=== PATIENT | male | born 1940 | race Caucasian/White ===

== ENCOUNTER → 2017-04-18 | Outpatient (CLI) | payer MEDICARE, OTHER ==
[~2017-04-18] MED LIST: ACTOS 30 MG TAB30 M1 PO; ACTOS15 MG PO; ASPIR 8181 MG PO; BRILINTA90 MG PO; CIPRO500 MG PO; CLONIDINE0.1 PO; COZAAR 25 MG TA25 M1 PO; COZAAR 50 MG TA50 M2 PO; CYCLOBENZAPRINE5 MG PO; DIABETA 5MG TABL5 MG PO; DOCUSATE SODIU100 MG PO; FARXIGA10 MG PO; FLOMAX0.4 MG PO; HYDRALAZINE20 MG/M1 IV PUSH; HYDROCHLOROTHIA25 M2 PO; IBUPROFEN 400400 M2 PO; KEFLEX500 MG PO; KEPPRA 500 MG500 M1 PO; LAMICTAL100 MG PO; LAMOTRIGINE ODT25 MG PO; LIDODERM 5%1 PATC1 TRANSDERM; LIPITOR 20 MG T20 M1 PO; LOPRESSOR50 PO; METFORMIN HCL500 MG PO; MIRALAX17 GM PO; MIRALAX255 GM PO; NITROGLYCERIN0.4 MG SUBLING; NORCO 5-325 TA1 EACH PO; NORVASC10 MG PO; NYAMYC15 GM TOP; PHENAZOPYRIDIN200 M2 PO; PIOGLITAZONE15 MG; PIOGLITAZONE15 MG PO; PROVIGIL 200 M200 M1 PO; SERTRALINE HCL50 MG PO; STOOL SOFTENER1 EAC2 PO; TOPROL XL25 MG PO; TYLENOL325 MG PO; ULTRAM 50MG TAB50 MG PO; ZOCOR20 MG PO; ZOFRAN ODT4 MG DISSOLVE
[2017-04-18 15:29] LABS: ALBUMIN 3.3 g/dL (3.4-5.0); CALCIUM 9.3 mg/dL (8.5-10.1); CREATININE 1.2 mg/dL (0.6-1.3); DIRECT BILIRUBIN 0.1 mg/dL (<0.1-0.3); TOTAL BILIRUBIN 0.2 mg/dL (<0.1-1.0); TOTAL PROTEIN 7.7 g/dL (6.4-8.2)
[2017-04-18 17:44] LABS: URINE BILIRUBIN NEGATIVE (Negative); URINE BLOOD NEGATIVE (Negative); URINE CLARITY CLEAR; URINE COLOR YELLOW; URINE GLUCOSE-RANDOM NEGATIVE (Negative); URINE KETONES NEGATIVE (Negative); URINE LEUKOCYTES-REFLEX NEGATIVE (Negative); URINE NITRITE-REFLEX NEGATIVE (Negative); URINE PROTEIN NEGATIVE (Negative); URINE UROBILINOGEN 0.2 E.U./dl (0.2-1.0)
== END ==
LOC: M.LAB 14:30 → M.CT 15:30
PROVIDERS: Internal Medicine
DX: K80.20 Calculus of gallbladder without cholecystitis without obstruction (principal)

== ENCOUNTER → 2017-04-28 | Outpatient (CLI) | payer MEDICARE, OTHER ==
[2017-04-28 09:40] LABS: HEMATOCRIT 39.8 % (42.0-52.0); HEMOGLOBIN 13.4 gm/dL (14.0-18.0); MCH 29.5 pg (26.0-34.0); MCHC 33.7 g/dL (28.0-37.0); MCV 87.4 fL (80.0-100.0); MPV 8.2 fl. (7.2-11.1); NUCLEATED RBCS 0 /100WBC; PLATELET COUNT* 262 thou/uL (150-400); RBC 4.56 mil/uL (4.50-6.00); RDW-CV 15.6 % (10.5-14.5); WBC 5.5 thou/uL (4.0-11.0)
[2017-04-28 10:07] LABS: APTT 30.2 Seconds (25.0-31.3); INR 1.1; PROTIME 10.5 Seconds (9.20-11.50)
[2017-04-28 10:11] LABS: ABSOLUTE EOSINOPHILS 0.3 thou/uL (0.0-0.7); ABSOLUTE LYMPHOCYTES 0.5 thou/uL (0.8-5.3); ABSOLUTE MONOCYTES 0.3 thou/uL (0.0-1.2); ABSOLUTE NEUTROPHILS 4.4 thou/uL (1.6-8.1); ANISOCYTOSIS 1+; PLATELET ESTIMATE ADEQUATE; POIKILOCYTOSIS 1+
--- NOTE | 2017-05-02 23:03 | S ---
[address] [address] SURGICAL PATH RPT PROCEDURE Name: YOVANY MARTINEZ [id number] Admission: 04/28/17 Date of : 38 Discharge: Report #: [id number] Path Case #: [id number] PATHOLOGY REPORT COLLECTION DATE: 04/28/2017 RECEIVED DATE: 04/30/2017 SUBMITTING PHYS: Dr. Franklyn Wan OTHER PHYS: Dr. Angel Banks SPECIMEN(S) RECEIVED: A.Abdominal mass * * * * * * * * * * * * FINAL DIAGNOSIS: "Abdominal mass", image guided needle biopsy: - Lymph node with atypical lymphoid infiltrate and geographic necrosis. (See comment). (CLW:stiven; 05/02/2017) COMMENT: Sections show needle core biopsy fragments of lymph node. Large areas of geographic necrosis and degenerating lymphocytes are noted. Focal areas of viable lymph node show lymphocytes with a mixed population of large and medium-sized lymphoid cells. No markedly atypical lymphoid cells, including Catrachito-Ismael cells, are identified. Due to the inconclusive, paucicellular, and borderline viable flow cytometry specimen, properly controlled immunohistochemical stains are performed. Block A1 CD30 - Patchy weak staining, no Catrachito-Ismael cells identified CD15 - Stains the necrosis PAX5 - Scattered B-cells within the viable tissue CD3 - Scattered T-cells within the viable and non-viable tissue MUM1 - Scattered positive cells ALK1 - Essentially nonreactive Flow cytometric immunophenotypic analysis was attempted at [facility]. The diagnosis is "low cellularity specimen with no definitive flow immunophenotypic evidence of a lymphoproliferative disorder". There are 35.8% lymphocytes. Of the lymphocytes, there are greater than 90% T-cells with a CD4/CD8 ratio of 1.4. No aberrant T-cell antigen expression. B-cells are too few for reliable clonality assessment. The vast majority of lymphocytes are heterogeneous T-cells. There is no definitive flow immunophenotypic evidence of a B- or T-cell lymphoproliferative disorder. Please see separate flow cytometry report from [facility] ([id number]). Overall the diagnosis is lymph node with [place] [address] SURGICAL PATH RPT PROCEDURE Name: YOVANY MARTINEZ Room: [facility]#: [id number] Admission: 04/28/17 Date of : 38 Discharge: Report #: [id number] Path Case #: [id number] and geographic necrosis. It is concerning for a lymphoproliferative process. 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 Obtaining additional tissue for complete morphologic evaluation and flow cytometric immunophenotypic analysis may provide additional information, if clinically indicated. Clinical and radiographic correlation is required. The H and E stained slides are co-reviewed with Dr. Joe Jones. The case was discussed with Dr. Banks by Dr. Joe Jones on 05/02/2017 in the morning. (CLW:stiven; 05/02/2017) PATHOLOGIST: Nirali Covarrubias M.D. REPORT ELECTRONICALLY SIGNED BY: Nirali Covarrubias M.D. DATE/TIME: 05/02/2017 23:02 * * * * * * * * * * * * GROSS PATHOLOGY: The specimen is received in formalin, labeled "Yovany Martinez, abdominal mass mesenteric BX," and consists of multiple needle core biopsies measuring 2.0 x 0.5 x 0.1 cm in aggregate. They are entirely submitted in cassette A1. (SDY; 04/30/2017) A separate specimen received in RPMI is submitted to [facility] for flow cytometry studies. (GUANAKO:mml; 05/01/2017) CLINICAL HISTORY: Core biopsies of mesenteric mass, suspect lymphoma 14.5 x 9.5 x 14.2 cm mass INITIAL CPT CODE(S): A; 09875, 70928, 90529, 26613, 90696, 76398, 80474 Professional services performed by [facility] at [facility], [address] [place], [place] [address], [place] [address]. Technical services performed by [facility] at [address] [place] [address], [address], [place] [address]. [facility] [address] [place] [address] PHONE: [phone] DIRECTOR: Simone Méndez M.D. * * * END OF REPORT * * *
== END | disposition home or self-care (01) ==
LOC: M.LAB 09:00 → M.CT 10:00
PROVIDERS: Internal Medicine
DX: C81.93 Hodgkin lymphoma, unspecified, intra-abdominal lymph nodes (principal); R10.9 Unspecified abdominal pain

== ENCOUNTER → 2017-05-14 | Day surgery (SDC) | payer MEDICARE, OTHER ==
--- NOTE | 2017-05-14 15:51 | EKG ---
[place] [address] ELECTROCARDIOGRAM REPORT Name: HECTOR MARTINEZ Heron Room: [facility]#: [id number] Admission: 05/14/17 Attend Phys: Landy Arguello DO Discharge: Date of : 38 Report #: [id number] THIS REPORT FOR: //name// [facility] Test Date: 2017-05-14 Test Time: 12:13:35 Pat Name: HECTOR MARTINEZ Department: Room: Gender: M Wet Silk Hanger: LEXII : 1940 Requested By: Landy Arguello Order Number: [id number] Bertha MD: Angel Coker Measurements Intervals Cornwall Rate: 69 P: 3 WY: 247 QRS: -18 QRSD: 110 T: 3 QT: 409 QTc: 438 Interpretive Statements Sinus rhythm Prolonged WY interval Inferior infarct, old Probable anteroseptal infarct, old Compared to ECG 10/17/2016 08:55:44 No significant changes Electronically Signed On 05-14-2017 15:50:50 CDT by Angel Coker [email or web address] <ELECTRONICALLY SIGNED> By: Angel Coker MD, [facility] 05/14/17 1550 1213 1213 Angel Coker MD, [facility] /EPI
--- NOTE | 2017-05-14 19:07 | OP ---
[address] [address] OPERATIVE REPORT Name: HECTOR MARTINEZ Room: [facility]#: [id number] Admission: 05/14/17 Attend Phys: Landy Arguello DO Discharge: Date of : 38 Report #: [id number] THIS REPORT FOR: //name// CC: Landy Fierromen DICTATED BY: Airam Mccarthy DO DATE OF SERVICE: 05/14/2017 Dr. Airam Mccarthy dictating for Dr. Landy Arguello. PREOPERATIVE DIAGNOSIS: Lymphadenopathy. POSTOPERATIVE DIAGNOSIS: Lymphadenopathy. SURGEON: Landy Arguello DO; and Airam Mccarthy DO, PGY-5. PASTEURIZER HELPER: SOFIA Ying. PROCEDURE: Left groin excisional lymph node biopsy. ANESTHESIA: Local MAC. ESTIMATED BLOOD LOSS: 10 mL. SPECIMENS: Left groin lymph node. COMPLICATIONS: None. HISTORY OF PRESENT ILLNESS: The patient is a pleasant 76-year-old male who presented to our office for evaluation of large mesenteric mass. He had had a percutaneous biopsy of this with concern for lymphoma that was not definitively diagnostic and we were asked to proceed with excisional lymph node biopsy to obtain additional tissue. Risks and benefits were discussed with the patient including risk of bleeding, infection, possible lymphocele and possible need for reexcision. He understood and agreed to proceed. OPERATIVE DETAILS: After obtaining proper informed consent, the patient was brought to the operating room and laid supine on the operating table. He was given preoperative antibiotics. SCDs were placed and left arm was tucked and padded in usual fashion. He was sedated under monitored anesthesia care and local infiltration of 0.5% Marcaine was injected in the subcutaneous tissue overlying the palpable lymph node in the left groin. A curvilinear incision was made and dissection of subcutaneous tissue was carried [place] [address] OPERATIVE REPORT Name: HECTOR MARTINEZ Room: [facility]#: [id number] Admission: 05/14/17 Attend Phys: Landy Arguello DO Discharge: Date of : 39 Report #: [id number] cautery. Careful blunt dissection was carried out until we are able to see evidence of methylene blue in the lymphatic channels. A small lymph node was then grasped with an Allis and lymphatic channel was clamped proximally and distally and it was excised sharply and was sent with pathology for fresh evaluation. Silk ties were placed on the proximal and distal lymphatics and groin was inspected and hemostasis assured with cautery. Incision was closed in layered fashion with deep 3-0 Vicryl suture, subcutaneous with 3-0 Vicryl and skin was closed with running 4-0 Monocryl. A total of 50 mL of 0.5% Marcaine was injected throughout the case. Mastisol, Steri-Strips, sterile gauze and sterile Tegaderm dressing were applied. All counts were correct at the end of the case. Drapes were removed and the patient was awoken and brought to PACU in good condition for further recovery. Dr. Landy Arguello was present and scrubbed for the entirety of the procedure. <ELECTRONICALLY SIGNED> By: Landy Arguello DO 05/14/17 1907 1525 1556Caliyn Arguello, /nt
--- NOTE | 2017-05-20 15:45 | S ---
[address] [address] SURGICAL PATH RPT PROCEDURE Name: HECTOR MARTINEZ Room: [facility].#: [id number] Admission: 05/14/17 Date of : 38 Discharge: Report #: [id number] Path Case #: [id number] PATHOLOGY REPORT COLLECTION DATE: 05/14/2017 RECEIVED DATE: 05/14/2017 SUBMITTING PHYS: Dr. Landy Arguello OTHER PHYS: Dr. Angel Rivera SPECIMEN(S) RECEIVED: A.L groin lymph node * * * * * * * * * * * * FINAL DIAGNOSIS: "Left groin lymph node," excisional biopsy: - Lymph node with dense hilar fibrosis and compressed lymphoid tissue showing reactive changes; no diagnostic evidence of lymphoma. (see comment) COMMENT: Sections show fragments of lymph node that is predominantly replaced with a dense hilar fibrosis. Lymph node cortical lymphoid tissue is compressed and shows reactive changes. There are areas of sinus sclerosis and dystrophic calcification typical of groin / pelvic lymph nodes. The lymphocytes are predominantly small, round, and mature appearing with condensed chromatin and scant cytoplasm with admixed loose collections of larger germinal center type lymphoid cells. No markedly atypical lymphoid cells, including Catrachito-Ismael cells, are identified. No geographic necrosis is seen. No granulomas or metastatic carcinoma is identified. Due to the low viability and low cellularity of the flow cytometry specimen, properly controlled immunohistochemical stains are performed. (Block A1) CD20: stains cortical B cells PAX-5: stains cortical B cells CD3: highlights admixed T cells CD10: occasional weakly reactive collections of cells BCL-6: loose collections of reactive cells, likely germinal center type cells BCL-2: reactive in lymphoid cells CD23: minimal residual dendritic cell mesh works Cyclin D-1: lacks diffuse nuclear staining MUM-1: stains rare scattered smaller cells, likely plasma cells CD30: no significant staining CD15: highlights scattered smaller cells, likely granulocytes ALK-1: [place] [address] SURGICAL PATH RPT PROCEDURE Name: HECTOR MARTINEZ Room: [facility]#: [id number] Admission: 05/14/17 Date of : 38 Discharge: Report #: [id number] Path Case #: [id number] Ki-67: stains occasional scattered small cells Flow cytometric immunophenotypic analysis was performed at [facility]. The diagnosis is "no significant lymphoid immunophenotypic abnormalities detected in a limited study." There are 23% lymphocytes. Of the lymphocytes, there are 29% B cells that are polytypic / polyclonal. T cells have no significant abnormalities and the CD4/CD8 ratio is 3.4. There are 77% CD45 negative events / debris. A limited panel of markers was performed due to very low cell yield. There is no significant immunophenotypic abnormalities detected in this limited analysis. Please see separate flow cytometry report from [facility] ([id number]). Cytomorphological examination of the touch imprints shows a polymorphous population of lymphoid cells. No markedly atypical lymphoid cells are identified. Overall, the diagnosis is lymph node with diffusely fibrotic hilar region and compressed lymphoid tissue showing reactive changes. There is no diagnostic evidence of lymphoma or a lymphoproliferative process. The tissue is morphologically different from the previously biopsied abdominal mass ([id number]). Clinical and radiographic correlation is required. (CLW:; 05/20/2017) PATHOLOGIST: Nirali Covarrubias M.D. REPORT ELECTRONICALLY SIGNED BY: Nirali Covarrubias M.D. DATE/TIME: 05/20/2017 15:44 * * * * * * * * * * * * MICROSCOPIC DESCRIPTION: Special studies report received from [facility], [address] [place] [address], [address], [place], [address], on case [id number], labeled with their number [id number], dated 05/17/2017. Flow Cytometry: Hematologic Neoplasia Assessment Test Cancellation Report Clinical History Left groin lymph node Indication For Study Evaluation for lymphadenopathy Specimen Lymph Node, Left Groin Viability 44% (7AAD exclusion) Interpretation Lymph Node, Left Groin: - No significant lymphoid immunophenotypic abnormalities detected in a limited study (see comment). Comments A limited panel of markers was performed due to very low cell yield. There are no significant immunophenotypic abnormalities detected in this limited analysis. [place] [address] SURGICAL PATH RPT PROCEDURE Name: HECTOR MARTINEZ Room: [facility]#: [id number] Admission: 05/14/17 Date of : 38 Discharge: Report #: [id number] Path Case #: [id number] non- hematolymphoid neoplasms, Hodgkin lymphoma, some large cell lymphomas and some T-cell lymphomas cannot be totally excluded based solely on flow cytometry analysis. Correlation with available clinical, laboratory, and morphologic data is recommended. Given the reduced specimen viability, these results need to be interpreted with caution. Populations Analyzed Lymphocytes: 23% B-cells: 29%, polytypic/polyclonal sIg light chain pattern T-cells: no significant abnormalities of the markers tested CD4:CD8: 3.4 CD45 Negative 77% No significant reactivity with the markers tested (may represent Events/Debris: non-hematolymphoid cells, degenerated cells, debris, unlysed red blood cells, etc.) Morphologic Evaluation A slide was reviewed for supplier quality purposes only. Specimen Description Due to low cell count, the lab is unable to provide an accurate cell yield. A limited panel of antibodies was performed and < 10.000 events were acquired. Flow cytometry data derived from an acquisition with less than 10,000 events needs to be interpreted within the context of all clinical, laboratory, and morphologic information. Reagent(s) Used CD3, CD4, CD5, CD8, CD10, CD19, CD20, CD38, CD45, CD57, kappa, lambda at [facility] [employer]. Louisa Hernandez MD Pathologist Intended Use Flow cytometry is optimally used to immunophenotypically characterize abnormal populations when they are detected. Negative flow cytometry results do not exclude lymphoma or neoplasia. Possible false negative flow cytometry results may occur in, but are not limited to, the following: neoplastic cells in Hodgkin lymphoma are not typically adequately represented by routine clinical flow cytometry; neoplastic cells may be lost or inadequately represented due to degeneration, sample processing, sampling artifact, or patchy involvement; plasma cells are typically underrepresented by flow cytometry; immature cells/blasts may be underrepresented due to hemodilution; myeloproliferative disorders and low grade myelodysplasia may not have immunophenotypic abnormalities or increased blasts. Correlation with all available clinical, laboratory, and morphologic data is always necessary to assess for the possibility of false negative flow cytometry results and to establish a diagnosis. Each marker in this analysis was used to assess for potential antigenic abnormalities or to evaluate detected abnormalities. Disclaimer(s) [place] [address] SURGICAL PATH RPT PROCEDURE Name: HECTOR MARTINEZ Room: [facility].#: [id number] Admission: 05/14/17 Date of : 38 Discharge: Report #: [id number] Path Case #: [id number] This test was performed at [facility]. at [address] [place], [place], [address] - Undertaker Assistant: Franklyn Aguilar MD. [facility] is a business unit of [employer], [employer] a wholly-owned subsidiary of [employer]. Any image or images that accompany this report are uniforms sales representative images only and should not be used to render a diagnosis. This test was developed and its performance characteristics determined by [facility]. It has not been cleared or approved by the Food and Drug Administration (FDA). The FDA has determined that such clearance or approval is not necessary. For inquiries, the physician may contact Lab: [phone] A complete copy of the report is on file. Professional services performed by [facility]. at [address], [place] [address]. Technical services performed by [facility]. at [address], [place] [address]. GROSS PATHOLOGY: Received fresh from the OR is a nodule measuring approximately 1 x 0.8 x 0.7 cm accompanied by a label marked with the patient's name and "left groin lymph node". Using sterile technique, a portion of the sample is submitted for routine, fungal and mycobacterial cultures and a small portion is submitted in RPMI for flow cytometry studies and a Touch-Prep is prepared and the remainder of the entire sample is serially sectioned and submitted in cassette A1. A portion of the specimen was received in RPMI solution and is forwarded on for flow cytometry studies. (GUANAKO:stiven; 05/14/2017) INTRAOPERATIVE CONSULTATION (Miya Jones M.D.) Intraoperative Touch-Prep (Left groin lymph node): - Viable lymphoid tissue identified. (GUANAKO:stiven; 05/14/2017) Testing performed by [facility] at [facility], [address] [place] [address]. CLINICAL HISTORY: None Provided INITIAL CPT CODE(S): A; 89600(23), 37672, 41669, 93003, 78156, 98700, 50664, 17539, 03529, 98156, 63449, 13407, 57647, 74448, 71038, 94178, 59656, 58222 Professional services performed by [facility] at [place] [address] [place], [place] [address] [place] [address] SURGICAL PATH RPT PROCEDURE Name: HECTOR MARTINEZ Room: [facility] Olga#: [id number] Admission: 05/14/17 Date of : 38 Discharge: Report #: [id number] Path Case #: [id number] Technical services performed by [facility] at [address] [place] [address], [address] [address]. [facility] [address] [place] [address] PHONE: [phone] DIRECTOR: Simone Méndez M.D. * * * END OF REPORT * * *
== END | disposition home or self-care (01) ==
LOC: M.SUR 08:23
DX: I89.8 Other specified noninfective disorders of lymphatic vessels and lymph nodes (principal); Z79.82 Long term (current) use of aspirin; Z79.891 Long term (current) use of opiate analgesic; Z79.899 Other long term (current) drug therapy

== ENCOUNTER 2017-06-04 12:29 | Inpatient (IN) | payer MEDICARE, OTHER ==
[~2017-06-04] VITALS: Ht 175.3 cm; Wt 88.1 kg
[2017-06-04 12:49] VITALS: BP 178/90
[2017-06-04 13:19] LABS: HEMOGLOBIN 14.1 gm/dL (14.0-18.0); MCH 30.2 pg (26.0-34.0); MCHC 34.4 g/dL (28.0-37.0); MPV 8.2 fl. (7.2-11.1); NUCLEATED RBCS 0 /100WBC; PLATELET COUNT* 226 thou/uL (150-400); RBC 4.66 mil/uL (4.50-6.00); RDW-CV 16.4 % (10.5-14.5)
[2017-06-04 13:27] LABS: INR 1.1; PROTIME 10.7 Seconds (9.20-11.50)
[2017-06-04 13:32] LABS: CALCIUM 9.4 mg/dL (8.5-10.1); CREATININE 1.2 mg/dL (0.6-1.3); POTASSIUM 3.9 mmol/L (3.5-5.1)
[2017-06-04 13:37] LABS: ALBUMIN 3.8 g/dL (3.4-5.0); TOTAL BILIRUBIN 0.5 mg/dL (<0.1-1.0); TOTAL PROTEIN 7.2 g/dL (6.4-8.2)
[2017-06-04 13:44] LABS: URINE BILIRUBIN NEGATIVE (Negative); URINE BLOOD TRACE (Negative); URINE CLARITY CLEAR; URINE COLOR YELLOW; URINE GLUCOSE-RANDOM NEGATIVE (Negative); URINE KETONES NEGATIVE (Negative); URINE LEUKOCYTES 3+ (Negative); URINE NITRITE NEGATIVE (Negative); URINE PROTEIN NEGATIVE (Negative); URINE SPECIFIC GRAVITY <= 1.005 (1.005-1.030); URINE UROBILINOGEN 0.2 E.U./dl (0.2-1.0)
[2017-06-04 13:52] LABS: SQUAMOUS 4-10 Moderate /LPF (0-3)
[2017-06-04 13:53] LABS: WBC CLUMPS Few (None Seen)
[2017-06-04 13:55] LABS: BACTERIA 1-9 Few /HPF (None Seen); CRYSTALS None Seen /LPF (None Seen); HYALINE CASTS 0-3 Few /LPF (None Seen); MUCUS 0-3 Light strn/LPF (None Seen); URINE RBC 3-10 Few /HPF (0-2)
[2017-06-04 14:06] LABS: ABSOLUTE EOSINOPHILS 0.2 thou/uL (0.0-0.7); ABSOLUTE LYMPHOCYTES 0.4 thou/uL (0.8-5.3); ABSOLUTE MONOCYTES 0.7 thou/uL (0.0-1.2); ABSOLUTE NEUTROPHILS 4.7 thou/uL (1.6-8.1)
[2017-06-04 14:08] LABS: MACROCYTES Occasional; PLATELET ESTIMATE ADEQUATE
[2017-06-04 20:33] VITALS: BP 185/95
[2017-06-04 21:00] VITALS: BP 194/99
[2017-06-05] VITALS (9 sets, daily range): BP systolic 101–186; BP diastolic 50–95
--- NOTE | 2017-06-05 05:49 | NUR ---
RECEIVED REPORT FROM ER NURSE, YONNY AT 2019, PT ARRIVED VIA CART AT 2039. SPOUSE AND DAUGHTER AT BEDSIDE, PT ORIENTED TO ROOM AND CALL LIGHT. AAOX4, ZONING ENGINEER IN PLACE, TRACING SINUS RHYTHM THIS SHIFT. NOTIFIED DR. CHUN OF PT'S ELEVATED BP THIS SHIFT, NEW ORDERS RECEIVED, SEE EMAR OR DOCUMENTATION. HOURLY ROUNDING COMPLETED, Q2H REPOSITIONING COMPLETED. PT MADE SEVERAL ATTEMPTS TO HAVE BM THIS SHIFT WITHOUT SUCCESS. PRN PAIN MEDICATIONS ADMINISTERED, CALL LIGHT REMAINS WITHIN REACH.
--- NOTE | 2017-06-05 15:18 | NUR ---
CM ASSESSMENT: Pt is A&O. Resides at home with his and dtr, both at bedside. Pt is able to walk short distances with a cane, with standby assist from his family. Pt has 2 stair lifts, a lift chair, hospital bed, power chair, and wc at home. Family assist with bathing and grooming. Hx of [facility]. Hx of [facility] skilled. Hx of acute rehab. Unsure of mass in Pt's stomach, Onc in to see today. is hopeful that Pt is able to return home, but stated that Pt may need skilled if Pt requires surgery. Following.
[2017-06-05 16:18] LABS: URIC ACID* 6.7 mg/dL (2.6-7.2)
--- NOTE | 2017-06-05 16:28 | EKG ---
[place] [address] ELECTROCARDIOGRAM REPORT Name: HECTOR MARTINEZ Room: [address] ADM IN M.R.#: [id number] Admission: 06/04/17 Attend Phys: Torres Cruz Discharge: Date of : 38 Report #: [id number] THIS REPORT FOR: //name// [facility] ED Test Date: 2017-06-04 Test Time: 13:45:39 Pat Name: HECTOR MARTINEZ Department: Room: [facility] Gender: Activities Coordinator: Rosita REED : 1940 Requested By: Allsion Mendez Order Number: [id number] MD: Nick Soares Measurements Intervals [place] Rate: 70 P: -2 UT: 251 QRS: -23 QRSD: 109 T: -13 QT: 421 QTc: 455 Interpretive Statements Sinus rhythm Prolonged [place] interval Inferior infarct, age indeterminate Anterior infarct, old Baseline wander in lead(s) V6 Compared to ECG 05/14/2017 12:13:35 No significant changes Electronically Signed On 06-05-2017 16:28:40 CDT by Nick Soares [email or web address] <ELECTRONICALLY SIGNED> By: Nick Soares MD, [facility] 06/05/17 1628 1345 1345 Nick Soares MD, FAC /EPI
--- NOTE | 2017-06-05 16:52 | NUR ---
DR LINDA CALLED AND WOULD LIKE THE PATIENT TO BE TRANSFERED TO IN THE MORNING. THE ACCEPTING PHYSICIAN WILL BE DR MARINO WITH INPATIENT [facility]AT[facility]. DR LINDA WOULD LIKE TO BE CONTACTED WITH ANY QUESTIONS OR CONCERNS AT [phone]. WILL HAVE AN OPEN BED IN THE MORNING AND WILL BE EXPECTING HIM. KAUSHIK SAYS SHE WILL SET THIS TRANSFER UP FIRST THING IN THE MORNING. I HAVE ALREADY SPOKE WITH KAUSHIK AND SHE IS PREPARED TO HANDLE THIS IN THE AM.
--- NOTE | 2017-06-05 18:58 | NUR ---
I ASSUMED CARE OF THE PATIENT AT 0700. HE IS ALERT AND ORIENTED X4 AND IS UP WITH ASSIST X1-2 WITH RIHT SIDED HEMIPARESIS. BED IS IN THE LOW LOCKED POSITION AND CALL LIGHT IS IN REACH. HOURLY ROUNDING IS COMPLETED AND PATIENT NEEDS ARE MET. PAIN IS MANAGED WITH PRN MEDICATIONS. DR LINDA HAS REQUESTED THAT THE PATIENT BE TRANSFERED TO IN THE MORNING, SEE SEPERATE NOTE. PATIENT HAD A BOWEL MOVEMENT TODAY AFTER A SUPPOSITORY. HE IS NOW RESTING. WILL CONTINUE TO MONITOR. AND DAUGHTER ARE AT THE BEDSIDE MOST OF THE DAY.
--- NOTE | 2017-06-05 20:30 | NUR ---
RECEIVED REPORT AT 1900 AND ASSUMED CARE, PT RESTING FOR THE FIRST TIME TODAY. ASSESSMENT COMPLETED AT THIS TIME. PT VERY PLEASANT AND TALKATIVE. LT SIDED HEMIPARESIS. TAKING MEDS WITHOUT COUGHING OR CHOKING. DISCUSSED BEING TRANSFERRED TO TOMORROW. TELEMETRY ON SHOWING SR WITH 1ST AVB. WILL CONT TO MONITOR AND ASSIST NEEDED.
[2017-06-06] VITALS: BP 137/66
[2017-06-06 04:20] VITALS: BP 112/73
--- NOTE | 2017-06-06 07:04 | NUR ---
SLEPT WELL TONIGHT. ASSIST WITH REPOSITIONING IN BED. PT ANXIOUS ABOUT LEAVING TODAY. TELEMETRY CONT TO SHOW ST WITH 1ST AVB. ACHIEVED HS GOALS OF SAFETY AND REST. HOURLY ROUNDING OBSERVED. ASSESSMENT UNCHANGED.
[2017-06-06 07:30] VITALS: BP 151/65
[2017-06-06 08:13] VITALS: BP 151/65
--- NOTE | 2017-06-06 08:46 | NUR ---
DPOA completed yesterday. CM contacted [facility] this AM, awaiting call back to determine ability to accept Pt as a transfer today. Following.
--- NOTE | 2017-06-06 14:08 | NUR ---
RECEIVED TRANSFER ORDERS PER DR CHUN. REPORT CALLED TO GIANCARLO BEEBE AT [facility]. HIGH RISK CASE MANAGER REMOVED AND RETURNED TO NURSE'S DESK PRIOR TO TRANSFER. PATIENTS AND DAUGHTER AT BEDSIDE AND GATHERED UP ALL THE PATIENTS BELONGINGS. BRIEF REPORT GIVEN TO EMS BEFORE TRANSPORT. ALL BELONGINGS ARE LEAVING WITH THE PATIENTS FAMILY. IV SALINE LOCKED AND REMAINS IN PLACE FOR TRANSPORT. NO QUESTIONS OR CONCERNS AT TIME OF DISCHARGE.
== END 2017-06-06 14:10 | disposition short-term general hospital (02) | DRG 841 ==
LOC: M.ERS 12:29 → M.TBA-ER 16:24 → M.2W 16:24
PROVIDERS: Internal Medicine Hematology & Oncology; Nurse Practitioner Family; ADMIT Internal Medicine
DX: C85.93 Non-Hodgkin lymphoma, unspecified, intra-abdominal lymph nodes (principal); N30.01 Acute cystitis with hematuria; R19.04 Left lower quadrant abdominal swelling, mass and lump; I10 Essential (primary) hypertension; E11.9 Type 2 diabetes mellitus without complications; I16.0 Hypertensive urgency; K21.9 Gastro-esophageal reflux disease without esophagitis; K59.00 Constipation, unspecified; R59.1 Generalized enlarged lymph nodes; Z87.891 Personal history of nicotine dependence; Z86.73 Personal history of transient ischemic attack (TIA), and cerebral infarction without residual deficits; Z85.828 Personal history of other malignant neoplasm of skin; Z79.82 Long term (current) use of aspirin; Z79.84 Long term (current) use of oral hypoglycemic drugs; Z79.899 Other long term (current) drug therapy; Z82.49 Family history of ischemic heart disease and other diseases of the circulatory system

== ENCOUNTER → 2018-03-09 | Outpatient (CLI) | payer MEDICARE, OTHER | LOC: M.RAD 11:17 | DX: R91.8 Other nonspecific abnormal finding of lung field (principal); R06.00 Dyspnea, unspecified; R05 Cough ==

== ENCOUNTER → 2018-03-31 | Outpatient (CLI) | payer MEDICARE, OTHER ==
[2018-03-31 11:19] LABS: HEMATOCRIT 45.1 % (42.0-52.0); HEMOGLOBIN 15.5 gm/dL (14.0-18.0); MCH 30.9 pg (26.0-34.0); MCHC 34.4 g/dL (28.0-37.0); MCV 89.7 fL (80.0-100.0); MPV 7.8 fl. (7.2-11.1); NUCLEATED RBCS 0 /100WBC; PLATELET COUNT* 196 thou/uL (150-400); RBC 5.03 mil/uL (4.50-6.00); RDW-CV 14.4 % (10.5-14.5)
[2018-03-31 11:25] LABS: CALCIUM 9.2 mg/dL (8.5-10.1); CREATININE 1.1 mg/dL (0.6-1.3); POTASSIUM 3.8 mmol/L (3.5-5.1)
[2018-03-31 11:37] LABS: ALBUMIN 3.5 g/dL (3.4-5.0); TOTAL BILIRUBIN 0.4 mg/dL (<0.1-1.0); TOTAL PROTEIN 6.6 g/dL (6.4-8.2)
[2018-03-31 12:04] LABS: ABSOLUTE LYMPHOCYTES 0.3 thou/uL (0.8-5.3); ABSOLUTE MONOCYTES 0.2 thou/uL (0.0-1.2); ABSOLUTE NEUTROPHILS 5.5 thou/uL (1.6-8.1); ANISOCYTOSIS 1+; PLATELET ESTIMATE ADEQUATE; POIKILOCYTOSIS 1+
== END ==
LOC: M.RAD 09:14
PROVIDERS: Internal Medicine
DX: J98.11 Atelectasis (principal); J92.9 Pleural plaque without asbestos; R05 Cough; R09.89 Other specified symptoms and signs involving the circulatory and respiratory systems

== ENCOUNTER → 2018-09-23 | Outpatient (CLI) | payer MEDICARE, OTHER | LOC: M.RAD 10:50 | DX: M47.816 Spondylosis without myelopathy or radiculopathy, lumbar region (principal); M43.16 Spondylolisthesis, lumbar region; M41.86 Other forms of scoliosis, lumbar region; M25.78 Osteophyte, vertebrae; I70.0 Atherosclerosis of aorta ==

== ENCOUNTER → 2018-09-30 | Outpatient (CLI) | payer MEDICARE, OTHER | LOC: M.RAD 14:20 | DX: M25.512 Pain in left shoulder (principal) ==

== ENCOUNTER → 2019-02-12 | Outpatient (CLI) | payer MEDICARE, OTHER ==
--- NOTE | 2019-02-12 17:19 | CARDNUC ---
[place] [address] CARDIAC NUCLEAR IMAGING REPORT Name: HECTOR MARTINEZ Room: [facility]#: [id number] Admission: 02/12/19 Attend Phys: Torres Woo Discharge: Date of : 38 Date of Service: 02/12/19 1718 Report #: [id number] THIS REPORT FOR: //name// APPROVED REPORT Study performed: 02/12/2019 09:28:36 Exam: Nuclear Stress Test Indication: s/p stent Patient Location: Out-Patient Stress Tech: Diana Hanna Stress Nurse: Sandi Martinez RN NM Tech:RASTA Blevins Ht: 5 ft 11 in Wt: 203 lbs BSA: 2.12 m2 BMI: 28.30 Medical History Medical History: Diabetes, HTN, CAD s/p stent,cva Medications: clonidine, asa, carvedilol Allergies: No known drug allergies Cardiac Risk Factors: Age, Tobacco History (Former), HTN, DM Previous Cardiac Procedures: PCI Exercise History: Sedentary Meds Held (24 hrs): carvedilol Stress Test Details Stress Test: Pharmacologic stress testing performed using 0.4 mg of regadenoson per 5 mL given IV over 10 seconds. Reason for pharmacologic stress test: physical limitation. HR Resting HR: 78 bpm Max Heart Rate (APMHR): 141 bpm Max HR Achieved: 92 bpm Target HR (85% APMHR): 119 bpm % of APMHR: 65 Recovery HR: 91 bpm BP Resting BP: 173/97 mmHg Max BP: 154/90 mmHg ECG Resting ECG: Atrial Fibrillation Stress ECG: Atrial Fibrillation ST Change: [place] [address] CARDIAC NUCLEAR IMAGING REPORT Name: HECTOR MARTINEZ Room: [facility]#: [id number] Admission: 02/12/19 Attend Phys: Torres Woo Discharge: Date of : 38 Date of Service: 02/12/19 1718 Report #: [id number] Recovery ECG: Atrial Fibrillation Recovery ST Change: None Clinical Reason for Termination: Completed protocol Exercise duration: 0 min sec Exercise capacity: 1 METs The patient tolerated Lexiscan infusion without significant cardiac symptoms. Nurse Comments pt paralysed on left side so is unable to walk on treadmill Stress ECG Conclusion The baseline 12-lead EKG shows atrial flutter ablation with a controlled ventricular response rate. There were no significant ST segment abnormalities. EKGs obtained during and post Lexiscan infusion showed atrial relation no significant ST segment changes when compared to baseline. NM EXAM: Myocardial Perfusion REST/STRESS Imaging Protocol: Rest Tc-99m/Stress Tc-99m 1 day Resting Data Rest SPECT myocardial perfusion imaging was performed in supine position 30 minutes following the intravenous injection of 11.7 mCi of Tc-99m Sestamibi. Time of rest injection: 804 Date: 02/12/2019 The images were gated to evaluate regional wall motion and calculate left ventricular ejection fraction. Administration Route: IV Administration Site: Right AC Pharmacologic Stress Pharmacologic stress test was performed by injecting Regadenoson 0.4 mg IV push followed by the intravenous injection of 34.1 mCi of Tc-99m Sestamibi. Time of stress injection: 944 Date: 02/12/2019 Administration Route: IV Administration Site: Right AC Gated Stress SPECT was performed 40 minutes after stress injection. The images were gated to evaluate regional wall motion and calculate left ventricular ejection fraction. Stress only was performed [place] [address] CARDIAC NUCLEAR IMAGING REPORT Name: HECTOR MARTINEZ [id number] Admission: 02/12/19 Attend Phys: Torres Woo Discharge: Date of : 38 Date of Service: 02/12/19 1718 Report #: [id number] Study Quality Study: Good Artifact: No artifact Study Data At rest, the left ventricular ejection fraction was 38%.. Post stress, the left ventricular ejection was 33%.. TID = 1.00. Perfusion There is a moderate size severe intensity fixed defect involving the basal to mid inferior wall suggesting prior inferior infarct. There is a moderate sized moderate to severe intensity reversible defect involving the mid to apical anterior and anterolateral wall consistent with an area of ischemia. Wall Motion There is apical hypokinesis. The basal inferior wall is akinetic. Global LV systolic function appears to be moderately to severely decreased. Nuclear Conclusion ECG Findings: negative for ischemia Clinical Findings: negative for ischemia Nuclear Findings: negative for ischemia Exercise Capacity: not assessed Left Ventricular Function: abnormal Risk Study: high Perfusion study suggests prior inferior wall infarct. Additionally there is no area of ischemia involving the mid to apical anterior and anterolateral nguyen. Global LV systolic function is moderately to severely decreased with wall motion and normal LV systolic above. Findings consistent with an ischemic cardiomyopathy. This is a high risk study due to both evidence of infarct/ischemia as well as moderate to severe left ventricular systolic dysfunction. <Conclusion> The baseline 12-lead EKG shows atrial flutter ablation with a controlled ventricular response rate. There were no significant ST segment abnormalities. EKGs obtained during and post Lexiscan infusion showed atrial relation no significant ST segment changes when compared to baseline. <ELECTRONICALLY SIGNED> By: Dakota White MD, FACC 02/12/19 1718 17 17 Dakota White MD, FACC /INF
== END ==
LOC: M.NUC 07:34
DX: I25.119 Atherosclerotic heart disease of native coronary artery with unspecified angina pectoris (principal); E11.9 Type 2 diabetes mellitus without complications; I10 Essential (primary) hypertension; Z95.5 Presence of coronary angioplasty implant and graft; Z79.899 Other long term (current) drug therapy

== ENCOUNTER 2019-02-19 10:50 | Emergency (ER) | payer MEDICARE, OTHER ==
[~2019-02-19] VITALS: Ht 180.3 cm; Wt 96.0 kg
[2019-02-19 11:12] LABS: ABSOLUTE EOSINOPHILS 0.1 thou/uL (0.0-0.7); ABSOLUTE LYMPHOCYTES 0.4 thou/uL (0.8-5.3); ABSOLUTE MONOCYTES 0.7 thou/uL (0.0-1.2); ABSOLUTE NEUTROPHILS 4.9 thou/uL (1.6-8.1); BASOPHILS 0.6 %; EOSINOPHILS 2.2 %; HEMATOCRIT 45.1 % (42.0-52.0); HEMOGLOBIN 15.8 gm/dL (14.0-18.0); LYMPHOCYTES 6.4 %; MCH 32.3 pg (26.0-34.0); MCV 92.4 fL (80.0-100.0); MONOCYTES 11.9 %; MPV 8.6 fl. (7.2-11.1); NUCLEATED RBCS 0 /100WBC; PLATELET COUNT* 175 thou/uL (150-400); POLYS 78.9 %; RBC 4.88 mil/uL (4.50-6.00); RDW-CV 14.1 % (10.5-14.5); WBC 6.1 thou/uL (4.0-11.0)
[2019-02-19 11:21] LABS: APTT 28.2 Seconds (25.0-31.3); PROTIME 10.4 Seconds (9.20-11.50)
[2019-02-19 11:22] LABS: CALCIUM 8.3 mg/dL (8.5-10.1); CREATININE 1.2 mg/dL (0.6-1.3); POTASSIUM 3.9 mmol/L (3.5-5.1)
[2019-02-19] MEDS ORDERED: IMDUR 30 MG TAB30 M1 PO (11:27)
[2019-02-19] MEDS ORDERED: PLAVIX 75 MG TA75 MG PO (11:27)
[2019-02-19 11:32] LABS: ALBUMIN 3.5 g/dL (3.4-5.0); TOTAL BILIRUBIN 0.8 mg/dL (<0.1-1.0); TOTAL PROTEIN 6.6 g/dL (6.4-8.2)
[2019-02-19 13:21] LABS: URINE BILIRUBIN NEGATIVE (Negative); URINE BLOOD NEGATIVE (Negative); URINE CLARITY CLEAR; URINE COLOR YELLOW; URINE GLUCOSE-RANDOM NEGATIVE (Negative); URINE KETONES NEGATIVE (Negative); URINE LEUKOCYTES-REFLEX NEGATIVE (Negative); URINE NITRITE-REFLEX POSITIVE (Negative); URINE PROTEIN NEGATIVE (Negative); URINE UROBILINOGEN 0.2 E.U./dl (0.2-1.0)
[2019-02-19 13:33] LABS: CASTS None Seen /LPF (None Seen); CRYSTALS None Seen /LPF (None Seen); SQUAMOUS 4-10 Moderate /LPF (0-3); URINE RBC None Seen /HPF (0-2)
[2019-02-19 13:37] LABS: URINE WBC-REFLEX 0-5 Rare /HPF (0-5)
[2019-02-19] MEDS ORDERED: KEFLEX500 M1 PO (13:55)
[2019-02-19] MEDS ORDERED: NORCO 5-325 TA1 EAC1 PO (13:55)
[2019-02-19 14:22] VITALS: BP 153/91
--- NOTE | 2019-02-19 16:18 | EKG ---
[place] [address] ELECTROCARDIOGRAM REPORT Name: HECTOR MARTINEZ [id number] Admission: 02/19/19 Attend Phys: Discharge: 02/19/19 Date of : 38 Report #: [id number] THIS REPORT FOR: //name// [facility] Test Date: 2019-02-19 Test Time: 10:56:16 Pat Name: HECTOR MARTINEZ Department: Room: Gender: M Roving Frame Tender: STAS : 1940 Requested By: Og Heard Order Number: [id number] MD: Angel Coker Measurements Intervals [place] Rate: 51 P: [place]: QRS: -56 QRSD: 109 T: 75 QT: 441 QTc: 407 Interpretive Statements Atrial fibrillation Inferior infarct, old Anterior infarct, old Compared to ECG 06/04/2017 13:45:39 Sinus rhythm no longer present Myocardial infarct finding still present Electronically Signed On 02-19-2019 16:17:35 SEASONAL SALES ASSOCIATE by Angel Coker [email or web address] <ELECTRONICALLY SIGNED> By: Angel Coker MD, [facility] 02/19/19 1617 Angel Coker MD, FACC /EPI
== END 2019-02-19 14:34 | disposition home or self-care (01) ==
LOC: M.ERS 10:50
PROVIDERS: Emergency Medicine Emergency Medical Services
DX: N39.0 Urinary tract infection, site not specified (principal); R07.89 Other chest pain; C85.90 Non-Hodgkin lymphoma, unspecified, unspecified site; I10 Essential (primary) hypertension; E11.9 Type 2 diabetes mellitus without complications; K21.9 Gastro-esophageal reflux disease without esophagitis; Z85.828 Personal history of other malignant neoplasm of skin; Z86.73 Personal history of transient ischemic attack (TIA), and cerebral infarction without residual deficits

== ENCOUNTER 2019-02-22 10:51 | Observation (INO) | payer MEDICARE, OTHER ==
[2019-02-22] VITALS (12 sets, daily range): BP systolic 121–173; BP diastolic 76–116
[~2019-02-22] VITALS: Ht 177.8 cm; Wt 89.8 kg
--- NOTE | ~2019-02-22 | H ---
[address] [address] HISTORY AND PHYSICAL Name: HECTOR MARTINEZ Room: [address] Carmen Espinoza#: [id number] Admission: 02/22/19 Attend Phys: Nick Soares MD, Discharge: 02/23/19 Date of : 38 Report #: [id number] THIS REPORT FOR: //name// Please refer to the History and Physical performed in the physician's office. By: 0635Medical Records Staff BRIANDA /STAS
[~2019-02-22 10:51] MED LIST changes: +IMDUR 30 MG TAB30 M1 PO; +KEFLEX500 M1 PO; +NORCO 5-325 TA1 EAC1 PO; +PLAVIX 75 MG TA75 MG PO
[2019-02-22 13:17] LABS: HEMATOCRIT 47.1 % (42.0-52.0); HEMOGLOBIN 16.7 gm/dL (14.0-18.0); MCH 32.6 pg (26.0-34.0); MCHC 35.5 g/dL (28.0-37.0); MCV 91.9 fL (80.0-100.0); MPV 8.2 fl. (7.2-11.1); RBC 5.13 mil/uL (4.50-6.00); RDW-CV 14.1 % (10.5-14.5); WBC 5.8 thou/uL (4.0-11.0)
[2019-02-22 13:26] LABS: ANION GAP 8 mmol/L (7-16); APTT 27.4 Seconds (25.0-31.3); BUN 22 mg/dL (7-18); CALCIUM 8.9 mg/dL (8.5-10.1); CHLORIDE 101 mmol/L (98-107); CO2 29 mmol/L (21-32); CREATININE 1.3 mg/dL (0.6-1.3); GLUCOSE 130 mg/dL (70-99); PROTIME 10.7 Seconds (9.20-11.50); SODIUM 138 mmol/L (136-145)
[2019-02-22 13:30] LABS: ALBUMIN 3.7 g/dL (3.4-5.0); ALKALINE PHOSPHATASE 110 U/L (46-116); CHOLESTEROL 178 mg/dL (<200); HDL CHOLESTEROL 33 mg/dL (>40); LDL CHOLESTEROL 115 mg/dL (<100); SERUM ASSESSMENT Clear; SGOT 19 U/L (15-37); SGPT 17 U/L (30-65); TC:HDL 5.4 Ratio (Not establshd); TOTAL BILIRUBIN 0.5 mg/dL (<0.1-1.0); TOTAL PROTEIN 7.1 g/dL (6.4-8.2); TRIGLYCERIDE 152 mg/dL (<150); VLDL 30 mg/dL (<40)
--- NOTE | 2019-02-22 17:15 | EKG ---
[place] [address] ELECTROCARDIOGRAM REPORT Name: HECTOR MARTINEZ Room: [address] M.R.#: [id number] Admission: 02/22/19 Attend Phys: Nick Soares MD, Discharge: Date of : 38 Report #: [id number] THIS REPORT FOR: //name// [facility] Test Date: 2019-02-22 Test Time: 13:26:38 Pat Name: HECTOR MARTINEZ Department: Room: [facility] Gender: M Digester: : 1940 Requested By: Nick Soares Order Number: [id number] Bertha MD: Dakota White Measurements Intervals [place] Rate: 69 P: TN: QRS: -53 QRSD: 107 T: 76 QT: 410 QTc: 440 Interpretive Statements Atrial fibrillation Anteroseptal infarct, old Inferior infarct, old Compared to ECG 02/19/2019 10:56:16 Myocardial infarct finding still present Electronically Signed On 02-22-2019 17:15:07 PROGRAM COORDINATOR FOR [employer] by Dakota White [email or web address] <ELECTRONICALLY SIGNED> By: Dakota White MD, [facility] 02/22/19 1715 1326 1326 Dakota White MD, [facility] /EPI
--- NOTE | 2019-02-22 17:16 | EKG ---
[place] [address] ELECTROCARDIOGRAM REPORT Name: HECTOR MARTINEZ Room: [address] M.R.#: [id number] Admission: 02/22/19 Attend Phys: Nick Soares MD, Discharge: Date of : 38 Report #: [id number] THIS REPORT FOR: //name// [facility] Test Date: 2019-02-22 Test Time: 16:57:38 Pat Name: HECTOR MARTINEZ Department: Room: [facility] Gender: M Tea Tree Farmer: : 1940 Requested By: Nick Soares Order Number: [id number] Bertha MD: Dakota White Measurements Intervals [place] Rate: 83 P: MD: QRS: -61 QRSD: 114 T: 55 QT: 432 QTc: 508 Interpretive Statements Atrial fibrillation Inferior infarct, old Anterior infarct, old Prolonged QT interval Compared to ECG 02/19/2019 10:56:16 Prolonged QT interval now present Myocardial infarct finding still present Electronically Signed On 02-22-2019 17:15:39 PLATFORM INSPECTOR by Dakota White [email or web address] <ELECTRONICALLY SIGNED> By: Dakota White MD, FAC 02/22/19 1715 1657 1657 Dakota White MD, [facility] /EPI
[2019-02-22] MEDS ORDERED: CARVEDILOL12.5 MG PO (18:38)
[2019-02-23 00:26] VITALS: BP 192/109
[2019-02-23 04:37] VITALS: BP 148/92
[2019-02-23 05:24] LABS: HEMATOCRIT 45.6 % (42.0-52.0); HEMOGLOBIN 16.2 gm/dL (14.0-18.0); MCH 32.5 pg (26.0-34.0); MCHC 35.7 g/dL (28.0-37.0); MCV 91.2 fL (80.0-100.0); MPV 8.4 fl. (7.2-11.1); RBC 4.99 mil/uL (4.50-6.00); WBC 8.4 thou/uL (4.0-11.0)
[2019-02-23 06:01] LABS: ALBUMIN 3.4 g/dL (3.4-5.0); ALKALINE PHOSPHATASE 105 U/L (46-116); ANION GAP 10 mmol/L (7-16); BUN 15 mg/dL (7-18); CALCIUM 8.3 mg/dL (8.5-10.1); CHLORIDE 101 mmol/L (98-107); CO2 27 mmol/L (21-32); GLUCOSE 128 mg/dL (70-99); POTASSIUM 3.3 mmol/L (3.5-5.1); SGOT 19 U/L (15-37); SGPT 15 U/L (30-65); SODIUM 138 mmol/L (136-145); TOTAL BILIRUBIN 0.8 mg/dL (<0.1-1.0); TOTAL PROTEIN 6.6 g/dL (6.4-8.2); TROPONIN-I LEVEL <0.06 ng/mL (<0.06)
[2019-02-23 07:45] VITALS: BP 176/81
[2019-02-23 11:05] VITALS: BP 115/78
[2019-02-23 12:32] VITALS: BP 115/78
[2019-02-23] MEDS ORDERED: BRILINTA90 MG PO (12:54)
[2019-02-23 12:56] VITALS: BP 115/78
--- NOTE | 2019-02-23 14:38 | EKG ---
[place] [address] ELECTROCARDIOGRAM REPORT Name: HECTOR MARTINEZ Room: [address] M.R.#: [id number] Admission: 02/22/19 Attend Phys: Nick Soares MD, Discharge: Date of : 38 Report #: [id number] THIS REPORT FOR: //name// [facility] Test Date: 2019-02-23 Test Time: 08:04:39 Pat Name: HECTOR MARTINEZ Department: Room: [facility] Gender: M Table Games Shift Manager: : 1940 Requested By: Nick Soares Order Number: [id number] Reading MD: Dakota White Measurements Intervals [place] Rate: 84 P: NE: QRS: -48 QRSD: 107 T: 31 QT: 385 QTc: 456 Interpretive Statements Atrial fibrillation Left ventricular hypertrophy Inferior infarct, old Anterior infarct, old Compared to ECG 02/22/2019 16:57:38 Left ventricular hypertrophy now present Prolonged QT interval no longer present Myocardial infarct finding still present Electronically Signed On 02-23-2019 14:37:20 NIGHT CLERK by Dakota White [email or web address] <ELECTRONICALLY SIGNED> By: Dakota White MD, FACC 02/23/19 1437 0804 [id number] Dakota White MD, FAC /EPI
[2019-02-23] MEDS ORDERED: ELIQUIS5 MG PO (16:03)
[2019-02-23 16:55] LABS: URINE BILIRUBIN NEGATIVE (Negative); URINE BLOOD NEGATIVE (Negative); URINE CLARITY CLEAR; URINE COLOR YELLOW; URINE GLUCOSE-RANDOM NEGATIVE (Negative); URINE KETONES NEGATIVE (Negative); URINE LEUKOCYTES-REFLEX NEGATIVE (Negative); URINE NITRITE-REFLEX NEGATIVE (Negative); URINE PROTEIN NEGATIVE (Negative); URINE UROBILINOGEN 0.2 E.U./dl (0.2-1.0)
--- NOTE | 2019-02-24 10:01 | CARD ---
[address] [address] CARDIAC CATH REPORT Name: HECOTR MARTINEZ Room: [address] Carmen Espinoza#: [id number] Admission: 02/22/19 Attend Phys: Nick Soares MD, Discharge: 02/23/19 Date of : 38 Report #: [id number] THIS REPORT FOR: //name// APPROVED REPORT Study performed: 02/22/2019 15:21:17 Patient Details Patient Status: Out-Patient Room #: The patient is a 78 year-old male Event Personnel Nick Soares Fruit Distributor, Mary Pires Hat Block Bench Hand, Qasim Babin Scrub, Lana Kramer RTR Monitor Procedures Performed Art Access - R femoral artery Left Heart Cath w/or w/o Coronaries [facility] w/wo Plasty Single LAD Hemostasis w/ Angioseal Indication Unstable angina Risk Factors Hypercholesterolemia, Hypertension Previous Procedures/Diagnoses Previous CVAPrevious PCI, Previous [place] Admission/Lab Medications/Medications given during procedure Angiomax bolus and infusion Procedure Narrative The patient was brought electively to the Cardiac Catheterization Laboratory and was prepped and draped in a sterile manner. The right femoral was infiltrated with 2% Lidocaine subcutaneous anesthesia. The right femoral accessed via ultrasound guidance. A Kinsley 6 FR sheath was inserted into the right femoral artery. Coronary angiography was performed using coronary diagnostic catheters. The right coronary system was accessed and visualized with a Diagnostic JR 4 6 Fr catheter. The left coronary system was accessed and visualized with a Guide 6F XB LAD 3.5 catheter. The left ventricle was accessed and visualized with a Diagnostic Pigtail 6 Fr catheter. Left ventricular/Aortic Valve gradient assessed via catheter pullback. Left ventriculogram was [place] [address] CARDIAC CATH REPORT Name: HECTOR MARTINEZ Room: [address]#: [id number] Admission: 02/22/19 Attend Phys: Nick Soares MD, Discharge: 02/23/19 Date of : 38 Report #: [id number] Pre-demployment femoral angiogram was performed . Closure device was deployed with a Fr Angioseal. The patient tolerated the procedure well and there were no complications associated with the procedure. There was no hematoma. Intraoperative Conscious Sedation Sedation start time: 15:54 Case end Time: 16:32 Fentanyl 25 mcg Versed 1 mg Fluoro Time: 7.9 minutes Dose: DAP 237434 cGycm2 1532 mGy Contrast Type and Amount: Visipaque 200 ml Diagnostic Cath Left Main 0% narrowing LAD 30% proximal LAD narrowing and 90% calcified mid LAD stenosis Circumflex 40% mid vessel narrowing with 80% stenosis in the midportion of the first marginal branch Right Coronary 100% proximal occlusion with [id number]-[id number] collaterals from the distal right coronary artery Left Ventriculography The left ventricle is normal in size with contractility. The left ventricular ejection fraction is estimated to be 30-35%. Left ventricular wall motion abnormalities are present. There is mild anterolateral and severe inferobasilar hypokinesis Hemodynamics The aortic pressure is 165/83 mmHg with a mean of 115 mmHg. The left ventricular pressure is 164/6 mmHg with a mean of mmHg. The left ventricular end diastolic pressure is 10 mmHg. There was no gradient across the aortic valve upon pullback. PCI Technique Lesion Anticoagulation was achieved with Angiomax Drip. Patient was preloaded with Angiomax IV 13.5 ml. Percutaneous coronary intervention was performed on the mid left anterior descending artery segment. The lesion stenosis prior to intervention was 90% with KIRK 3 flow. A 6F XB LAD 3.5 Guide Catheter was used to engage the left ostium. A IG: ProwaterFlex 180CM Interventional Guidewire was used to cross the lesion. BALLOON DILATION A Balloon catheter NC Trek RX 2.25 X 8 [place] [address] CARDIAC CATH REPORT Name: HECTOR MARTINEZ Room: [address] Carmen M.R.#: [id number] Admission: 02/22/19 Attend Phys: Nick Soares MD, Discharge: 02/23/19 Date of : 38 Report #: [id number] to 22.00atm for 16seconds. Additional Inflation: 24.00atm for 8seconds. STENT DEPLOYMENT A drug-eluting stent Xience Radha 2.91D18fr was inserted and inflated up to 14.00atm for 9seconds. Additional Inflation: 16.00atm for 8seconds. Final angiography reveals 0 % stenosis with KIRK 3 flow. Conclusion #1 significant multivessel coronary artery disease characterized by the following: A 30% proximal with 90% calcified mid LAD stenosis B 40% mid circumflex with 80% narrowing of the midportion of the first marginal branch C dominant right coronary artery which is totally occluded proximally with iupk-ji-hyngi collaterals filling the distal right coronary artery #2 moderate to moderately severe impairment in global LV function, estimate ejection fraction of 30-35% with modest anterior and moderately severe inferobasilar hypokinesis #3 moderate systemic systolic hypertension #4 successful percutaneous coronary intervention with deployment of a drug-eluting stent at site of 90% mid LAD stenosis with 0% residual narrowing and KIRK-3 flow the distal vessel Recommendations Cardiac Risk Reduction Program Aggressive Medical Therapy Medications Administered Aspirin (any) [place] [address] CARDIAC CATH REPORT Name: HECTOR MARTINEZ Room: [address] Carmen M.R.#: [id number] Admission: 02/22/19 Attend Phys: Nick Soares MD, Discharge: 02/23/19 Date of : 38 Report #: [id number] Diagnostic Cath Approved by: Nick Soares MD Date/Time: 02/24/2019 10:00:29 <ELECTRONICALLY SIGNED> By: Nick Soares MD, FACC 02/24/19 100 00 00Nick Soares MD, FAC /INF
--- NOTE | 2019-02-25 16:26 | D ---
[address] [address] DISCHARGE SUMMARY Name: HECTOR MARTINEZ Room: [address] Carmen Espinoza#: [id number] Admission: 02/22/19 Attend Phys: Nick Soares MD, Discharge: 02/23/19 Date of : 38 Report #: [id number] THIS REPORT FOR: //name// CC: Angel Soares DATE OF SERVICE: 02/23/2019 FINAL DISCHARGE DIAGNOSES: 1. Unstable angina. 2. Coronary artery disease. 3. Status post percutaneous coronary intervention with angioplasty and stenting of the left anterior descending. 4. Hyperlipidemia. 5. Prior cerebrovascular accident. 6. Type 2 diabetes. 7. Hypertension. 8. Persistent atrial fibrillation. PROCEDURES: On 02/22/2019 ? left heart catheterization, selective coronary arteriography and percutaneous coronary intervention with deployment of drug-eluting stent in the mid LAD. HOSPITAL COURSE: The patient is a pleasant 78-year-old male with a history of coronary artery disease status post prior stenting of the LAD and circumflex. Recently, he has experienced chest pain similar to his prior angina following an unstable course. He has underlying diabetes, hypertension and has recently demonstrated atrial fibrillation. He underwent cardiac catheterization on 02/22/2019, which revealed widely patent proximal LAD stent with 90% focal calcified mid LAD stenosis. The right coronary was totally occluded with left to right collaterals filling the distal right coronary artery and there was modest circumflex disease. I performed percutaneous coronary intervention, deploying one drug-eluting stent in the mid LAD with 0% residual narrowing and KIRK 3 flow of the distal vessel. The patient did well post-procedurally, no significant rise in troponin at 0.06. Additional lab revealed sodium 138, potassium 3.3, BUN 15, creatinine 1.0. Hemoglobin 16.2, white blood cell count 8400 with 183,000 platelets. He ambulated in the hallways without difficulty and there was good hemostasis at the [place] [address] DISCHARGE SUMMARY Name: HECTOR MARTINEZ Room: [address] Carmen Espinoza#: [id number] Admission: 02/22/19 Attend Phys: Nick Soares MD, Discharge: 02/23/19 Date of : 38 Report #: [id number] DISCHARGE MEDICATIONS: The patient was discharged to home on 02/23/2019 on the following medications: Carvedilol 6.25 mg b.i.d., clonidine 0.1 mg b.i.d., Imdur 30 mg daily, lamotrigine or Lamictal 100 mg b.i.d., metformin 500 mg b.i.d. to be resumed on 02/24/2019, sertraline 50 mg daily, simvastatin 20 mg at bedtime, tamsulosin 0.4 mg b.i.d., ticagrelor 90 mg b.i.d., and Eliquis 5 mg b.i.d. as well as p.r.n. sublingual nitroglycerin and hydrocodone/acetaminophen every 4 hours as needed for musculoskeletal discomfort. We will plan to call the patient regarding his status in the next 2 days, he is considering going on a cruise on Friday if he is clinically stable. We will plan to see him in followup once he returns from the cruise in approximately 3 weeks. Thus, the patient is discharged to home in stable condition on the aforementioned medications with followup as iterated above. <ELECTRONICALLY SIGNED> By: Nick Soares MD, FACC 02/25/19 1626 1546 1633Nick Soares MD, FACC /nt
== END 2019-02-23 18:13 | disposition home or self-care (01) ==
LOC: M.CL 10:51 → M.CRD 12:00 → M.TBA-CV 16:49 → M.2W 17:54
PROVIDERS: ADMIT Internal Medicine
DX: I25.110 Atherosclerotic heart disease of native coronary artery with unstable angina pectoris (principal); I63.9 Cerebral infarction, unspecified; E78.00 Pure hypercholesterolemia, unspecified; E11.9 Type 2 diabetes mellitus without complications; I10 Essential (primary) hypertension; I48.19 Other persistent atrial fibrillation; Z95.5 Presence of coronary angioplasty implant and graft

== ENCOUNTER 2019-03-17 16:32 | Inpatient (IN) | payer MEDICARE, OTHER ==
[~2019-03-17] VITALS: Ht 180.3 cm; Wt 89.4 kg
--- NOTE | ~2019-03-17 | CON ---
[address] [address] CONSULTATION Name: HECTOR MARTINEZ Room: [address] ADM IN M.R.#: [id number] Admission: 03/17/19 Attend Phys: Lainey Pelayo Discharge: Date of : 38 Report #: [id number] THIS REPORT FOR: //name// cc: Angel Banks MD, David L. MD ~ THIS REPORT FOR: //name// CC: Angel Espinosa CARDIOLOGY CONSULTATION HISTORY OF PRESENT ILLNESS: I was asked by Dr. Espinosa to see this 78-year-old white male in Cardiology consultation for evaluation and treatment of congestive heart failure. This man has known coronary artery disease and known severe left ventricular systolic dysfunction. Recent echo showed his ejection fraction was 30-35%. He recently had a stent placed in his LAD by Dr. Soares and I believe that was approximately 24 days ago. It was done here. At that time, a 90% calcified mid LAD stenosis was stented. Additionally, this man has persistent 80% stenosis in the mid portion of the first marginal branch of the circumflex. He has total occlusion of his right coronary artery proximal with left to right collaterals from the distal right coronary. I believe he had a 30-35% ejection fraction on the LV gram. There was modest anterior and moderately severe inferobasilar hypokinesis. He came in with shortness of breath. He has had shortness of breath for 2 months. He is not a very good historian. He has a history of a stroke. On 03/13/2015, this was felt to be an embolic event. He has a history of atrial fibrillation and atrial flutter. He is in atrial fibrillation with a controlled ventricular response now. He has had dyspnea on exertion, shortness of breath at rest, orthopnea and PND, but no edema. He does have some chest pain that does not sound cardiac, it is sharp and stabbing in the left lower chest, it hurts when he takes a deep breath, it only lasts a couple of seconds. This man does have a history of lymphoma. His oncologist told him that he was watching a spot on his CT of his chest as to whether his lymphoma has returned. He was also told by his primary care doctor, Dr. Banks that he had pneumonia, but I believe that was a couple of months ago. Coronary risk factors include past history of smoking, he has quit; however, he does have hypercholesterolemia and he is on a statin. He does have diabetes. He is on metformin. He does have high blood pressure and a family history of coronary disease, does not have renal disease or peripheral vascular disease. He has never had a bruit, but he did have the stroke as previously mentioned. He does have pain in his legs when he walks, but he says it is arthritis, it does not sound like claudication. He has never had open or nonhealing wounds. ALLERGIES: He has no known allergies. HOME MEDICATIONS: Include Eliquis 5 mg b.i.d., carvedilol 12.5 mg b.i.d., clonidine 0.1 mg b.i.d., Bryant 5/325 p.r.n. q.6 hours 1 to 2 tablets, Lamictal 100 mg b.i.d., metformin 500 mg b.i.d., sertraline 50 mg daily, simvastatin 20 mg at bedtime, although he is on atorvastatin in the hospital; tamsulosin 0.4 mg b.i.d. and Brilinta 90 mg b.i.d. His lymphoma has apparently been in remission since 2018. He got chemotherapy for his non-Hodgkin's lymphoma. REVIEW OF SYSTEMS: Positive for weakness, cough, pneumonia, palpitation, chest discomfort, shortness of breath with exercise, shortness of breath lying down, waking up short of breath, diabetes, vomiting blood, ulcers, blood in the stool, jaundice and chronic hepatitis, lymphoma, arthritis, wearing glasses, loss of vision, decreased hearing and dentures. Otherwise, his review of systems is negative for some 30 different complaints in 14 different system categories. Please see review of system form for details and negatives in review of systems. Systems reviewed include central nervous system, general, respiratory, cardiovascular, endocrine, gastrointestinal, genitourinary, hematologic, lymphatic, allergic, immunologic, psychiatric, musculoskeletal, skin, eyes, ears, nose, mouth, and throat. SOCIAL HISTORY: He is . He is retired, does not smoke, drink or use illegal drugs. FAMILY HISTORY: His mother had heart disease and diabetes. Otherwise, she does not know much about family history. PHYSICAL EXAMINATION: GENERAL: He presents as a well-developed, well-nourished white male in no acute distress. VITAL SIGNS: Pulse was 77 and they are slightly irregular, blood pressure is 128/95, respirations are 18 and regular, temperature is 97.6. HEENT: His head was atraumatic. Eyes clear. NECK: Supple. There is no jugular venous distention or hepatojugular reflux. Thyroid is not enlarged. There is no adenopathy. SKIN: Warm and dry. Mucous membranes are moist. LUNGS: Clear to auscultation and percussion. HEART: Revealed normal first and second heart sound. There was no S4. There is no S3. There were no murmurs, rubs, thrills, heaves or gallops. PMI is nondisplaced. Rhythm was slightly irregular. Rate was approximately 80. PMI was not displaced. ABDOMEN: Soft, flat and nontender. No palpable masses, no organomegaly. EXTREMITIES: Reveal no cyanosis, clubbing or edema. NEUROLOGIC: The patient mentated normally, talked normally, moved all extremities normally. His EKG shows atrial fibrillation with a controlled ventricular response. There is late transition in the precordial R-wave. There is an old anteroseptal anterior WV and there is an old inferior WV. The QT interval was prolonged. The chest x-ray showed significant cardiomegaly with congestive heart failure. There was principally significant pulmonary vascular engorgement with pulmonary vascular redistribution. The troponins were negative x 3. BNP was 5307. His creatinine was 1.2 yesterday and 1.0 today. BUN was 17 yesterday and 22 today. White count was 3700 initially and 4000 today. Hemoglobin and hematocrit were normal. IMPRESSION: 1. Congestive heart failure, acute on chronic combined, systolic and diastolic heart failure. 2. Coronary artery disease. 3. Status post myocardial infarction. 4. Status post coronary stents. 5. Brb-fxyakui-prdudaioh diabetes mellitus. 6. Essential hypertension. 7. Hypercholesterolemia. 8. Status post cerebrovascular accident. 9. Lymphoma. RECOMMENDATION: I would continue diuresing him. He has been getting Lasix additionally and stop his clonidine and put him on Entresto, I will start him on a low dose that is 24 mg/25 mg tablet. I have discussed his case with Dr. Soares, his primary court registry officer. He agrees. Thank you very much for asking me to see the patient. If there are any questions, please feel free to contact me. By: [id number]. Abilio Davis MD, FACC /nt
[~2019-03-17 16:32] MED LIST changes: +CARVEDILOL12.5 MG PO; +ELIQUIS5 MG PO
[2019-03-17 16:46] VITALS: BP 138/89
[2019-03-17 17:07] LABS: ABSOLUTE EOSINOPHILS 0.1 thou/uL (0.0-0.7); ABSOLUTE LYMPHOCYTES 0.3 thou/uL (0.8-5.3); ABSOLUTE MONOCYTES 0.6 thou/uL (0.0-1.2); ABSOLUTE NEUTROPHILS 2.8 thou/uL (1.6-8.1); BASOPHILS 0.6 %; EOSINOPHILS 1.4 %; HEMATOCRIT 44.8 % (42.0-52.0); HEMOGLOBIN 15.8 gm/dL (14.0-18.0); LYMPHOCYTES 7.9 %; MCH 32.5 pg (26.0-34.0); MCHC 35.3 g/dL (28.0-37.0); MCV 92.3 fL (80.0-100.0); MONOCYTES 15.3 %; MPV 8.5 fl. (7.2-11.1); NUCLEATED RBCS 0 /100WBC; PLATELET COUNT* 138 thou/uL (150-400); POLYS 74.8 %; RBC 4.85 mil/uL (4.50-6.00); WBC 3.7 thou/uL (4.0-11.0)
[2019-03-17 17:15] LABS: CALCIUM 8.5 mg/dL (8.5-10.1); CREATININE 1.2 mg/dL (0.6-1.3); POTASSIUM 3.1 mmol/L (3.5-5.1)
[2019-03-17 17:16] LABS: BE -0.3 mmol/L (-2 to +3); PCO2 34.5 mmHg (35.0-45.0); PO2 74.4 mmHg (75.0-100.0); pH 7.444 (7.340-7.450)
[2019-03-17 17:16] LABS: APTT 33.6 Seconds (25.0-31.3); INR 1.1; PROTIME 11.2 Seconds (9.20-11.50)
[2019-03-17 17:26] LABS: ALBUMIN 3.3 g/dL (3.4-5.0); TOTAL PROTEIN 7.1 g/dL (6.4-8.2)
[2019-03-17 21:00] VITALS: BP 150/80
[2019-03-17 21:09] VITALS: BP 142/78
[2019-03-18 04:00] VITALS: BP 128/95
[2019-03-18 04:40] LABS: HEMATOCRIT 44.3 % (42.0-52.0); HEMOGLOBIN 15.9 gm/dL (14.0-18.0); MCH 32.2 pg (26.0-34.0); MCV 89.5 fL (80.0-100.0); MPV 8.7 fl. (7.2-11.1); RBC 4.95 mil/uL (4.50-6.00); RDW-CV 14.1 % (10.5-14.5)
[2019-03-18 04:53] LABS: CALCIUM 8.5 mg/dL (8.5-10.1)
[2019-03-18 04:56] LABS: POTASSIUM 2.7 mmol/L (3.5-5.1)
[2019-03-18 08:00] VITALS: BP 148/97
--- NOTE | 2019-03-18 08:07 | NUR ---
RECEIVED REPORT FROM ER NURSE ZEESHAN AT 2051. PATIENT BROUGHT UP TO THE FLOOR AT 2108. PATIENT ORIENTED TO UNIT, ROOM, BED, CALL-LIGHT, AND HOSPITAL POLICY. ASSESSMENT COMPLETED CHARTED. PATIENT IS AFIB ON THE MONITOR. FALL PRECAUTIONS IN PLACE FOR PATIENT SAFETY. HOURLY ROUNDING IN PLACE FOR PATIENT SAFETY. CLWR.
[2019-03-18 11:40] VITALS: BP 161/112
[2019-03-18 11:45] VITALS: BP 146/113
--- NOTE | 2019-03-18 11:49 | NUR ---
MET WITH PT TO DISCUSS HOME SITUATION/DC PLANNING. PT LIVES WITH AND DTR. DTR MOVED IN TO ASSIST THEM WITH IADLS AND CARE. PT HAS HX OF STROKE, NEEDS ASSIST WITH ADLS AND IS W/C BOUND. DOESN'T TRANSFER OUT OF CHAIR UNLESS SOMEONE IS NEARBY. HE HAS HAD HH AND BEEN TO SNF AT [facility] IN PAST BUT DOESN'T WANT THAT AGAIN. PT HAS W/C, NEBULIZER. IS DPOA, WILL FOLLOW
--- NOTE | 2019-03-18 12:30 | NUR ---
RN NOTIFIED OF ABNORMAL VITAL SIGNS.
--- NOTE | 2019-03-18 14:20 | 2DMMODE ---
[place] [address] 2 D/M-MODE ECHOCARDIOGRAM Name: HECTOR MARTINEZ Room: [address] IN .R.#: [id number] Admission: 03/17/19 Attend Phys: Lainey tsang Sa Discharge: Date of : 38 Date of Service: 03/18/19 1419 Report #: [id number] THIS REPORT FOR: cc: Angel aBnks MD, David L. MD Biggs, F. Douglas MD [facility] ~ APPROVED REPORT Study performed: 03/18/2019 11:26:46 EXAM: Comprehensive 2D, Doppler, and color-flow Echocardiogram Patient Location: In-Patient Room #: 223 Status: routine BSA: 2.10 HR: 84 bpm BP: 148/97 mmHg Rhythm: Atrial Fibrillation Other Information Study Quality: Good Indications Dyspnea 2D Dimensions IVSd: 14.35 (7-11mm) LVOT Diam: 22.13 (18-24mm) LVDd: 56.13 mm PWd: 10.50 (7-11mm) Ascending Ao: 34.84 (22-36mm) LVDs: 40.40 (25-40mm) Aortic Root: 33.32 mm Volumes Left Atrial Volume (Systole) LA ESV Index: 49.10 mL/m2 Aortic Valve AoV Peak Chato.: 0.92 m/s AO Peak Gr.: 3.40 mmHg LVOT Max P.18 mmHg AO Mean Gr.: 1.82 mmHg LVOT Mean P.52 mmHg LVOT Max V: 0.54 m/s AO V2 VTI: 13.82 cm LVOT Mean V: 0.33 m/s WANDA (VTI): 2.47 cm2 LVOT V1 VTI: 8.88 [place] [address] 2 D/M-MODE ECHOCARDIOGRAM Name: HECTOR MARTINEZ Room: [address] IN .R.#: [id number] Admission: 03/17/19 Attend Phys: Lainey tsang Sa Discharge: Date of : 38 Date of Service: 03/18/19 1419 Report #: [id number] TDI Lateral E' Chato.: 0.13 m/s Pulmonary Valve PV Peak Chato.: 0.68 m/s PV Peak Gr.: 1.83 mmHg Tricuspid Valve RAP Estimate: 5.00 mmHg TR Peak Gr.: 26.96 mmHg RVSP: 31.00 mmHg PA Pressure: 31.00 mmHg Left Ventricle The left ventricle is normal size. There is normal LV segmental wall motion. There is normal left ventricular wall thickness. Left ventricular systolic function is moderate to severely decreased. LVEF is 30-35%. This study is not technically sufficient to allow evaluation of the LV diastolic function due to atrial fibrillation. Right Ventricle The right ventricle is normal size. The right ventricular systolic function is normal. Atria Left atrium is severely dilated. The right atrium size is normal. Aortic Valve Mild aortic valve sclerosis. No aortic regurgitation is present. There is no aortic valvular stenosis. Mitral Valve The mitral valve is normal in structure. Mild mitral regurgitation. No evidence of mitral valve stenosis. Tricuspid Valve The tricuspid valve is normal in structure. Mild tricuspid regurgitation. Mild pulmonary hypertension. Pulmonic Valve The pulmonary valve is normal in structure. There is no pulmonic valvular regurgitation. Great Vessels The aortic root is normal in size. IVC is not [place] [address] 2 D/M-MODE ECHOCARDIOGRAM Name: HECTOR MARTINEZ Room: [address] IN M.R.#: [id number] Admission: 03/17/19 Attend Phys: Lainey tsang Sa Discharge: Date of : 38 Date of Service: 03/18/19 1419 Report #: [id number] Pericardium There is no pericardial effusion. <Conclusion> LVEF is 30-35%. This study is not technically sufficient to allow evaluation of the LV diastolic function due to atrial fibrillation. Mild aortic valve sclerosis. There is no aortic valvular stenosis. Mild mitral regurgitation. Mild tricuspid regurgitation. Mild pulmonary hypertension. <ELECTRONICALLY SIGNED> By: Livier Davis MD, FACC 03/18/19 1419 141 18 Livier Davis MD, FACC /INF
[2019-03-18 16:00] VITALS: BP 116/77
--- NOTE | 2019-03-18 19:00 | NUR ---
ASSUMED PT CARE AT 0700, PT A&O X4, VSS, RA, RADIOLOGY RN TRACING AFIB, PT IS UP WITH ASSIST X2 D/T LEFT SIDED WEAKNESS. AT APPROX 1200, PT BEGAN TO C/O SLIGHT CHEST PAIN, RATING 7/10, BP STABLE THAT TIME. PT CONT TO C/O INCREASING CHEST PAIN, 10/10. EKG SHOWED OLD INFARCT AND AFIB. BP REACHED A DIASTOLIC OF 138, RAPID CALLED, NITRO GIVEN, TEAM NOTIFIED. A SECOND AND THIRD NITRO GIVEN WITH NO PAIN RELIEF BUT BP DID DECREASE TO 90'S/60'S. CARDIOLOGY AND HOSPITALIST BOTH SAW PT, NEW ORDERS GIVEN. PT DID HAVE FULL PAIN RELIEF AFTER GI COCKTAIL. PT HAD NO MORE C/O PAIN THROUGH OUT SHIFT, HOURLY ROUNDING COMPLETED.
[2019-03-18 20:00] VITALS: BP 145/90
[2019-03-19] VITALS (7 sets, daily range): BP systolic 104–148; BP diastolic 55–91
[2019-03-19 04:44] LABS: CALCIUM 9.1 mg/dL (8.5-10.1); CREATININE 1.4 mg/dL (0.6-1.3); MAGNESIUM 2.3 mg/dL (1.8-2.4)
[2019-03-19 04:45] LABS: POTASSIUM 2.8 mmol/L (3.5-5.1)
--- NOTE | 2019-03-19 07:10 | NUR ---
CHANGE OF SHIFT, BEDSIDE REPORT GIVEN PATIENT SEEN AT BEDSIDE, IN BED ASLEEP ASSUMED PATIENT CARE
--- NOTE | 2019-03-19 07:32 | NUR ---
ASSUMED PATIENT CARE AT 1900. ASSESSMENT COMPLETED CHARTED. PATIENT IS AFIB ON THE MONITOR. HOURLY ROUNDING IN PLACE FOR PATIENT SAFETY. CLWR.
--- NOTE | 2019-03-19 10:30 | NUR ---
CONTINUE TO FOLLOW, PT SLEEPING. PT STATED YESTERDAY HE PLANS TO RETURN HOME AT [place] WITH FAMILY, WILL FOLLOW. WAS OPEN TO HH
--- NOTE | 2019-03-19 14:33 | NUR ---
RE: CHF Medication Teaching Saw pt today at bedside to discuss CHF medications. Discussion included how/when to take meds, what they do, possible side effects etc. All questions were answered and the patient indicates they have no questions at this time. Pharmacy is available for further needs, thank you.
--- NOTE | 2019-03-19 15:02 | NUR ---
I have reviewed the documentation by Lory Iglesias from 03/19/2019 to 03/19/19, and I concur with it. MIKE DOYLE.
[2019-03-20 04:05] VITALS: BP 135/77
[2019-03-20 05:08] LABS: CALCIUM 8.8 mg/dL (8.5-10.1); CREATININE 1.2 mg/dL (0.6-1.3); POTASSIUM 3.2 mmol/L (3.5-5.1)
[2019-03-20 08:00] VITALS: BP 115/63
--- NOTE | 2019-03-20 08:25 | NUR ---
ASSUMED PATIENT CARE AT 1900. ASSESSMENT COMPLETED CHARTED. PATIENT IS AFIB ON THE MONITOR. HOURLY ROUNDING IN PLACE FOR PATIENT SAFETY. CLWR.
[2019-03-20 12:16] VITALS: BP 129/79
--- NOTE | 2019-03-20 15:56 | NUR ---
ASSUSMED CARE OF PT APPROX 0730. REASSESSMENT COMPLETED CHARTED. MEDICATIONS GIVEN CHARTED. PT UP TO BEDSIDE CAMODE MULTIPLE TIMES THIS SHIFT. CARE DISCUSSED WITH THE PHYSICAN. SAFTEY PRECAUTIONS IN PLACE. HOULRY ROUNDING. CALL LIGHT WITHIN REACH.
[2019-03-20 15:58] VITALS: BP 110/70
[2019-03-20 20:00] VITALS: BP 126/77
[2019-03-21] VITALS: BP 114/65
[2019-03-21 04:00] VITALS: BP 115/72
--- NOTE | 2019-03-21 07:39 | NUR ---
PT A+O X 4. NO SOA REPORTED OR OBSERVED. PLACED O2 ON @ HS (89% ON ROOM AIR). PT TRACING AFIB ON MONITOR. NO PAIN OR DISCOMFORT REPORTED OR OBSERVED. CALL LIGHT IN REACH. HOURLY ROUNDING FOR SAFETY.
[2019-03-21 08:18] VITALS: BP 123/80
--- NOTE | 2019-03-21 10:44 | NUR ---
ASSUSMED CARE OF PT APPROX 0730. REASSESSMENT COMPLETED CHARTED. MEDICATIONS GIVEN CHARTED. MEDICATIONS GIVEN DISCUSSED WITH PT. PT COMMUNICATED UNDERSTANDING. SAFTEY PRECAUTIONS IN PLACE. HOURLY ROUNDING. CALL LIGHT WITHIN REACH.
[2019-03-21] MEDS ORDERED: LASIX 40 MG TAB40 M1 PO (11:26)
[2019-03-21] MEDS ORDERED: ENTRESTO 24 MG1 EACH PO (11:26)
[2019-03-21] MEDS ORDERED: CARVEDILOL12.5 MG PO (11:26)
[2019-03-21 12:00] VITALS: BP 107/60
[2019-03-21 16:00] VITALS: BP 112/78
[2019-03-21 16:28] VITALS: BP 107/60
[2019-03-21] MEDS ORDERED: KLOR-CON 10 ER10 MEQ PO (17:03)
--- NOTE | 2019-03-24 13:44 | EKG ---
[place] [address] ELECTROCARDIOGRAM REPORT Name: HECTOR MARTINEZ Room: [address] IN M.R.#: [id number] Admission: 03/17/19 Attend Phys: Lainey tsang Sa Discharge: 03/21/19 Date of : 38 Date of Service: 03/18/19 1153 Report #: [id number] THIS REPORT FOR: cc: Angel Banks MD, David L. MD Blick,Angel Cunha MD [facility] ~ THIS REPORT FOR: //name// [facility] Test Date: 2019-03-18 Test Time: 11:53:11 Pat Name: HECTOR MARTINEZ Department: Room: [address] Gender: M Radiation Safety Officer: NF : 1940 Requested By: Lainey Espinosa Order Number: [id number] Reading MD: Angel Coker Measurements Intervals [place] Rate: 78 P: [place]: QRS: -43 QRSD: 113 T: 56 QT: 416 QTc: 474 Interpretive Statements Atrial fibrillation Ventricular premature complex LVH with secondary repolarization abnormality Inferior infarct, old Anterior infarct, old Compared to ECG 03/17/2019 17:03:16 Ventricular premature complex(es) now present Prolonged QT interval no longer present Myocardial infarct finding still present Electronically Signed On 2-6-2020 15:14:05 BOX STACKER by Angel Coker [email or web address] <ELECTRONICALLY SIGNED> By: Angel Coker MD, [facility] 03/18/19 1514 1153 1153 Angel Coker MD, [facility] /EPI
--- NOTE | 2019-03-24 13:54 | EKG ---
[place] [address] ELECTROCARDIOGRAM REPORT Name: HECTOR MARTINEZ Room: [address] IN M.R.#: [id number] Admission: 03/17/19 Attend Phys: Lainey tsang Sa Discharge: 03/21/19 Date of : 38 Date of Service: 03/17/19 1703 Report #: [id number] THIS REPORT FOR: cc: Angel Banks MD, David L. MD Biggs, F. Douglas MD [facility] ~ THIS REPORT FOR: //name// [facility] ED Test Date: 2019-03-17 Test Time: 17:03:16 Pat Name: HECTOR MARTINEZ Department: Room: [facility] Gender: M High Density Press Operator: : 1940 Requested By: Del Jacinto Order Number: [id number] MD: Abilio Davis Measurements Intervals [place] Rate: 76 P: [place]: QRS: -52 QRSD: 109 T: 40 QT: 520 QTc: 585 Interpretive Statements Atrial fibrillation LVH with secondary repolarization abnormality Inferior infarct, old Anterior infarct, old Prolonged QT interval Compared to ECG 02/23/2019 08:04:39 Early repolarization now present Prolonged QT interval now present Myocardial infarct finding still present Electronically Signed On 2-2020 14:29:55 WHIPPED TOPPING FINISHER by Abilio Davis [email or web address] <ELECTRONICALLY SIGNED> By: Livier Davis MD, [facility] 03/18/19 1429 02 170 Livier Davis MD, [facility] /EPI
== END 2019-03-21 18:23 | disposition home health service (06) | DRG 291 ==
LOC: M.ERS 16:32 → M.2W 18:32 → M.TBA-ER 18:32 → M.2W 18:32
PROVIDERS: Family Medicine; Internal Medicine Cardiovascular Disease; ADMIT Family Medicine
DX: I13.0 Hypertensive heart and chronic kidney disease with heart failure and stage 1 through stage 4 chronic kidney disease, or unspecified chronic kidney disease (principal); I50.43 Acute on chronic combined systolic (congestive) and diastolic (congestive) heart failure; D68.59 Other primary thrombophilia; I48.20 Chronic atrial fibrillation, unspecified; N18.2 Chronic kidney disease, stage 2 (mild); I25.10 Atherosclerotic heart disease of native coronary artery without angina pectoris; E78.00 Pure hypercholesterolemia, unspecified; I25.5 Ischemic cardiomyopathy; E87.6 Hypokalemia; I27.20 Pulmonary hypertension, unspecified; E78.5 Hyperlipidemia, unspecified; E11.22 Type 2 diabetes mellitus with diabetic chronic kidney disease; Z79.01 Long term (current) use of anticoagulants; Z85.72 Personal history of non-Hodgkin lymphomas; Z86.73 Personal history of transient ischemic attack (TIA), and cerebral infarction without residual deficits; Z79.84 Long term (current) use of oral hypoglycemic drugs; Z79.891 Long term (current) use of opiate analgesic; Z79.899 Other long term (current) drug therapy; Z95.5 Presence of coronary angioplasty implant and graft; Z82.49 Family history of ischemic heart disease and other diseases of the circulatory system; Z87.891 Personal history of nicotine dependence; I25.2 Old myocardial infarction

== ENCOUNTER → 2019-03-25 | Outpatient (CLI) | payer MEDICARE, OTHER ==
[~2019-03-25] MED LIST changes: +ENTRESTO 24 MG1 EACH PO; +KLOR-CON 10 ER10 MEQ PO; +LASIX 40 MG TAB40 M1 PO
[2019-03-25 15:57] LABS: CALCIUM 8.5 mg/dL (8.5-10.1); CREATININE 1.8 mg/dL (0.6-1.3); POTASSIUM 3.8 mmol/L (3.5-5.1)
== END ==
LOC: M.RAD 14:32
PROVIDERS: Registered Nurse
DX: J98.4 Other disorders of lung (principal); I25.5 Ischemic cardiomyopathy; I50.22 Chronic systolic (congestive) heart failure; I70.0 Atherosclerosis of aorta; M25.78 Osteophyte, vertebrae